=== PATIENT | male | born 1995 | race Asian ===

== ENCOUNTER 2017-10-16 14:31 | Emergency (ER) | payer OTHER ==
[~2017-10-16] VITALS: Ht 172.7 cm; Wt 66.7 kg
[2017-10-16 14:39] VITALS: TEMP 98
[2017-10-16 14:58] LABS: PLATELET COUNT 211 K/uL (142-355)
[2017-10-16 16:08] VITALS: BP 124/76
== END 2017-10-16 16:08 | disposition home or self-care (01) ==
LOC: ED 14:31
DX: K52.9 Noninfective gastroenteritis and colitis, unspecified (principal)
CPT/HCPCS: 80053; 81000; 85027; 96360; 96361; 99284; J7120